=== PATIENT | male | born 1970 | race African-American/Black ===

== ENCOUNTER 2017-02-01 13:23 | Inpatient (IN) | payer MEDICAID ==
[~2017-02-01] VITALS: Ht 182.9 cm; Wt 106.2 kg
--- NOTE | ~2017-02-01 | HP ---
ADMIT: 02/01/2017 RM/LOC: 401 [facility] MR#: [id number] [address] [facility] [address] JANKI MONSALVE [address] [place], [place] [id number] History and Physical SEX: M AGE: 46 : 1970 DATE OF SERVICE: The patient left AMA prior to me seeing him. Therefore, there was no H and P performed. Kylah Ulloa MD/ dipak JOB #: [id number] CC: Kylah Ulloa MD, Attending Physician Kylah Ulloa MD, Family Physician
[~2017-02-01 13:23] MED LIST: CARVEDILOL25 MG PO; CATAPRES-DPS0.1 MG PO; CATAPRES0.3 MG PO; COZAAR DPS50 MG PO; LASIX DPS80 MG PO; NEURONTIN DPS100 MG PO; NORCO 5-325 TA1 EACH PO; NORVASC DPS10 MG PO; PHOSLO667 MG PO; RENO CAPS SOFTGE1 MG PO; RENVELA800 MG PO; SENSIPAR30 MG PO; TYLENOL EXTRA500 M1 PO; VIGAMOX3 ML OS; VITAMIN D5000 UNIT PO; XOPENEX HFA15 GM IH; ZITHROMAX250 MG PO
--- NOTE | 2017-02-02 16:19 | ER ---
ADMIT: 02/01/2017 RM/LOC: 401 [facility] MR#: [id number] [address] [facility] [address] [facility] [place] [address] MONSALVEJANKI Rodrigo [address] [place] [address] Emergency Room Report SEX: M AGE: 46 : 1970 DATE: 02/01/2017 TIME: 1323 hours. Please refer to my T-sheet for complete H and P. Briefly, this is a 46-year- old who comes in. He was transferred over here from [place] because we have dialysis capability, apparently the now mixing supervisor talked to them. They then did a doctor, doctor from the ER to myself in the ER. The patient supposed to dialyze today, went out there, was too sleepy they thought, so they sent him to the ER. He had a large evaluation over there including a CT scan of head and blood work. Everything looked okay except he was very somnolent. They placed him on 5 L O2 and transferred over here. By the time he gets here, he has been talking on the way, he was texting. He was sluggish at first, but he does rally and responds. PHYSICAL EXAM: Here blood pressure 172/100, pulse 68, respirations 18, temp 95.6, and saturating 100% on 5 L. Took him off, he was like 90% on no oxygen. I reviewed his labs from the outside facility. CT head was read as negative. Chest x-ray was read as cardiomegaly but no acute, CBC normal except hemoglobin 7.5, platelets 106. Chemistries normal except BUN 49, glucose 109, creatinine 14.7. PH is 7.385 at the outside facility, pCO2 of 65.6, and PO2 of 178 that is the reason I took him off his oxygen. His lactate was 0.7. Mag 2.3. Procalcitonin is normal. His EKG was sinus rhythm, rate 57, no changes. We took him off his oxygen, he was easily arousable, but was slightly somnolent. I talked to Dr. Ulloa, will admit to the hospital. I talked to Dr. Rod, he was concerned about his ability to dialyze him today, however, we do have a dialysis capability. We will admit to the hospital. ASSESSMENT: 1. Increased somnolence. 2. Dialysis patient. PLAN: Admit to the hospital. Emmanuel Talavera MD/ dipak JOB #: [id number] CC: Kylah Ulloa MD, Attending Physician Kylah Ulloa MD, Family Physician
--- NOTE | 2017-03-01 12:10 | DS ---
ADMIT: 02/01/2017 RM/LOC: 401 [facility] MR#: [id number] [address] [address] JANKI MONSALVE [facility] [place] [address] Discharge Summary SEX: M AGE: 46 : 1970 ADMISSION DATE: 02/01/2017 DISCHARGE DATE: 02/01/2017 The patient left prior to me seeing him. Therefore, there was no discharge summary or admission H and P performed. Kylah Ulloa MD/ vdg JOB #: [id number] CC: Kylah Ulloa MD, Attending Physician Kylah Ulloa MD, Family Physician
== END 2017-02-01 17:58 | disposition left against medical advice (07) | DRG 81 ==
LOC: ER 13:23 → 4PCU 14:51
PROVIDERS: ADMIT Internal Medicine
DX: R40.0 Somnolence (principal); I51.7 Cardiomegaly; Z99.2 Dependence on renal dialysis